=== PATIENT | male | born 1930 | race Two or more races ===

== ENCOUNTER 2017-12-24 08:22 | Outpatient (CLI) | payer OTHER ==
[~2017-12-24] VITALS: Ht 177.8 cm; Wt 72.6 kg
== END 2017-12-24 08:45 | disposition home or self-care (01) ==
LOC: OFIC 805 08:22
DX: H90.3 Sensorineural hearing loss, bilateral (principal); H61.23 Impacted cerumen, bilateral; J31.0 Chronic rhinitis

== ENCOUNTER → 2018-06-17 | Emergency (ER) | payer OTHER ==
[~2018-06-17] VITALS: Ht 160 cm; Wt 68.0 kg
[~2018-06-17] MED LIST: LIPIODOL10 ML
== END | disposition left against medical advice (07) ==
LOC: ER 00:04
DX: Z53.20 Procedure and treatment not carried out because of patient's decision for unspecified reasons (principal)

== ENCOUNTER 2019-02-17 11:09 | Outpatient (CLI) | payer OTHER | END 2019-02-17 11:23 | disposition home or self-care (01) | LOC: TOM 11:09 | DX: R51 Headache (principal); M25.512 Pain in left shoulder ==

== ENCOUNTER 2019-05-19 08:01 | Outpatient (CLI) | payer OTHER | END 2019-05-19 08:03 | disposition home or self-care (01) | LOC: TOM 08:01 | DX: K57.30 Diverticulosis of large intestine without perforation or abscess without bleeding (principal) ==

== ENCOUNTER 2019-06-23 08:14 | Outpatient (CLI) | payer OTHER | END 2019-06-23 08:17 | disposition home or self-care (01) | LOC: TOM 08:14 | DX: K63.5 Polyp of colon (principal); Z53.1 Procedure and treatment not carried out because of patient's decision for reasons of belief and group pressure ==

== ENCOUNTER 2019-12-09 11:21 | Emergency (ER) | payer OTHER ==
[~2019-12-09] VITALS: Ht 175.3 cm; Wt 65.8 kg
[2019-12-09] MEDS ORDERED: COZAAR50 MG (12:37)
== END 2019-12-09 13:48 | disposition home or self-care (01) ==
LOC: ER 11:21
DX: S01.82XA Laceration with foreign body of other part of head, initial encounter (principal); W18.09XA Striking against other object with subsequent fall, initial encounter; Y93.89 Activity, other specified; Y92.89 Other specified places as the place of occurrence of the external cause; Y99.8 Other external cause status

== ENCOUNTER 2019-12-18 09:46 | Emergency (ER) | payer OTHER ==
[~2019-12-18] VITALS: Ht 172.7 cm; Wt 65.8 kg
[~2019-12-18 09:46] MED LIST changes: +COZAAR50 MG
== END 2019-12-18 15:18 | disposition home or self-care (01) ==
LOC: ER 09:46
DX: Z48.02 Encounter for removal of sutures (principal)

== ENCOUNTER 2020-08-08 14:36 | Outpatient (CLI) | payer OTHER | END 2020-08-08 14:41 | disposition home or self-care (01) | LOC: RAD 14:36 | PROVIDERS: ATTEND Internal Medicine | DX: M54.40 Lumbago with sciatica, unspecified side (principal); R10.2 Pelvic and perineal pain; M79.642 Pain in left hand ==